=== PATIENT | female | born 1965 | race Caucasian/White ===

== ENCOUNTER 2016-07-22 04:03 | Emergency (ER) | payer BC, OTHER ==
[2016-07-22 04:14] VITALS: BP 89/50; PULSE 86; RESP 16; TEMP 98.3
[2016-07-22] MEDS ORDERED: HYDROmorphone 1 MG/ML 1 ML SYRINGE IM STA (04:28)
[2016-07-22] MEDS ORDERED: KETOROLAC 60 MG/2 ML VIAL IM STA (04:28)
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
--- NOTE | 2016-07-22 05:23 | XR ---
EXAM: XR Cervical Spine, 4 or 5 Views. CLINICAL HISTORY: Reason: Pain TECHNIQUE: Frontal, lateral and oblique views of the cervical spine. COMPARISON: No relevant prior studies available. FINDINGS: Vertebrae: The alignment of the cervical spine. Mild disc space narrowing with endplate changes and anterior osteophyte formation at C5-6. There is mild disc space narrowing at C6-7 No acute fracture. Disc spaces: See above. Soft tissues: No prevertebral soft tissue abnormality. IMPRESSION: No acute bony abnormality. Cervical spondylosis most pronounced at C5-6.
== END 2016-07-22 05:19 | disposition home or self-care (01) ==
LOC: EC 04:03
DX: S16.1XXA Strain of muscle, fascia and tendon at neck level, initial encounter (principal); F17.200 Nicotine dependence, unspecified, uncomplicated; X58.XXXA Exposure to other specified factors, initial encounter
CPT/HCPCS: 72050; 99283; 96372 ×2; J1885; J1170

== ENCOUNTER → 2017-01-02 | Outpatient (CLI) | payer BC ==
--- NOTE | 2017-01-02 07:41 | CT ---
EXAMINATION TYPE: CT brain wo con DATE OF EXAM: 01/02/2017 COMPARISON: NONE HISTORY: Syncope, dizziness CT DLP: [address] of the brain was performed. The ventricles, basal cisterns and sulci overlying the cerebral convexities demonstrate a normal appe arance. There is no evidence for intracranial hemorrhage or sulcal effacement. No mass effects are seen. Osseous calvarium is intact. If symptoms persist consider MRI as clinically warranted. IMPRESSION: 1. No acute intracranial process is seen at this time.
== END ==
LOC: RADCTMAIN 07:17
PROVIDERS: ATTEND Internal Medicine
DX: R40.4 Transient alteration of awareness (principal); R55 Syncope and collapse
CPT/HCPCS: 70450

== ENCOUNTER → 2017-01-03 | Outpatient (CLI) | payer BC ==
--- NOTE | 2017-01-03 19:48 | MR ---
EXAMINATION TYPE: MR monika/catracho wo con DATE OF EXAM: 01/03/2017 COMPARISON: NONE HISTORY: neck and back pain TECHNIQUE: T1 and T2 axial and sagittal images of the lumbar spine are submitted. FINDINGS: There is no abnormal signal seen within the visualized spinal cord or paraspinal soft tissu es. At T12-L1 there is a small focal left paracentral disc bulge or erosion. No canal stenosis or foramin al encroachment. At L1-2 there is no disc herniation or canal stenosis. No foraminal encroachment. At L2-3 there is no disc herniation or canal stenosis. No foraminal encroachment. Mild hypertrophic c hange of the facets. At L3-4 there is mild degenerative disc disease. Moderate facet arthropathy with no canal stenosis or foraminal encroachment. At L4-5 there is moderate facet arthropathy. No disc herniation. Suggestion of an annular tear with l eft lateral disc bulging. Mild left foraminal encroachment. At L5-S1 there is annular tear and central disc broad-based disc protrusion. No canal stenosis. No fo raminal encroachment. IMPRESSION: 1. Multilevel mild degenerative disc disease and facet arthropathy. Annular tear L5-S1 with central d isc bulging. 2. Annular tear L4-L5 with left lateral disc based protrusion and mild left foraminal encroachment. EXAMINATION TYPE: MR nikole bowman con DATE OF EXAM: 01/03/2017 COMPARISON: NONE HISTORY: neck and back pain TECHNIQUE: T1 sagittal and coronal, T2 sagittal, and gradient echo axial views of the cervical spine are submitted. FINDINGS: The cranial cervical junction is preserved. There is no abnormal signal seen within the sp inal cord or paraspinal soft tissues. At C2-3 there is no disc herniation or canal stenosis. No foraminal encroachment. At C3-4 there is bilateral uncovertebral joint hypertrophy. Neural foramina patent. No Canal stenosis . At C4-5 there is bilateral uncovertebral joint hypertrophy. No canal stenosis. No foraminal encroachm ent. At C5-6 there is moderate degenerative disc disease with hypertrophic change of the facets and uncove rtebral joints. Neural foramina patent with mild narrowing on the left secondary to greater hypertrop hic changes. No disc herniation or canal stenosis. At C6-7 there is central and right paracentral disc bulging with mild bilateral uncovertebral joint h ypertrophy. Mild right-sided neural foraminal encroachment. No Canal stenosis. At C7-T1 there is disc herniation or canal stenosis. No foraminal encroachment. There is moderate degenerative disc disease C5-C6 and C6-C7 with mild changes its 3-4 and C4-C5. IMPRESSION: 1. At C6-7 there is central and right paracentral disc bulging with mild bilateral uncovertebral jameel nt hypertrophy. Mild right-sided neural foraminal encroachment. No Canal stenosis. 2. Moderate to severe degenerative disc disease C5-C6 with hypertrophic change of the facets and unco vertebral joints. Mild left neural foraminal encroachment. No Canal stenosis.
== END | disposition home or self-care (01) ==
LOC: RADMRIMAIN 13:32
PROVIDERS: ATTEND Internal Medicine
DX: M50.223 Other cervical disc displacement at C6-C7 level (principal); M51.36 Other intervertebral disc degeneration, lumbar region; M51.37 Other intervertebral disc degeneration, lumbosacral region; M50.322 Other cervical disc degeneration at C5-C6 level; M46.86 Other specified inflammatory spondylopathies, lumbar region
CPT/HCPCS: 72141; 72148

== ENCOUNTER → 2017-09-22 | Outpatient (CLI) | payer BC ==
--- NOTE | 2017-09-22 13:16 | XR ---
EXAMINATION TYPE: XR chest 2V DATE OF EXAM: 09/22/2017 COMPARISON: NONE HISTORY: Z 77.120, environmental exposure to mold TECHNIQUE: Frontal and lateral views of the chest are obtained. FINDINGS: There is no focal air space opacity, pleural effusion, or pneumothorax seen. The cardiac silhouette size is showing a decreased heart size. Prominent lung volume could be indicative of COPD. There is a slight spinal curvature. The osseous structures are intact. IMPRESSION: No acute cardiopulmonary process.
== END | disposition home or self-care (01) ==
LOC: RADXRMAIN 09:13
PROVIDERS: ATTEND Internal Medicine
DX: Z77.120 Contact with and (suspected) exposure to mold (toxic) (principal)
CPT/HCPCS: 71046

== ENCOUNTER → 2020-09-19 | Outpatient (CLI) | payer BC ==
--- NOTE | 2020-09-19 08:58 | US ---
EXAMINATION TYPE: US gallbladder DATE OF EXAM: 09/19/2020 COMPARISON: NONE CLINICAL HISTORY: R10.11 RUQ abd pain. x 3 months EXAM MEASUREMENTS: Liver Length: 14.3 cm Gallbladder Wall: 0.2 cm CBD: 0.5 cm Right Kidney: 10.1 x 5.1 x 3.9 cm Pancreas: Partially Obscured by bowel gas Liver: Increased attenuation Gallbladder: No stones seen Evidence for sonographic Teixeira's sign: Yes CBD: Upper normal for size Right Kidney: No hydronephrosis or masses seen IMPRESSION: No distinct abnormality appreciated.
== END | disposition home or self-care (01) ==
LOC: RADUSWWP 07:09
PROVIDERS: ATTEND Family Medicine
DX: R10.11 Right upper quadrant pain (principal)
CPT/HCPCS: 76705

== ENCOUNTER 2020-10-17 14:48 | Emergency (ER) | payer BC ==
[2020-10-17 15:05] VITALS: RESP 18; TEMP 98.3
[2020-10-17] MEDS ORDERED: SODIUM CHLORIDE 0.9% 500 ML 500 ML IV STA (15:40)
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
[2020-10-17 16:10] LABS: Basophils % (A) 0 %; Eosinophils # (A) 0.1 k/uL (0-0.7); Eosinophils % (A) 1 %; HCT 40.8 % (34.0-46.0); HGB 13.9 gm/dL (11.4-16.0); Lymphocytes # (A) 2.2 k/uL (1.0-4.8); Lymphocytes % (A) 25 %; MCH 32.5 pg (25.0-35.0); MCHC 34.1 g/dL (31.0-37.0); MCV 95.4 fL (80.0-100.0); Mean Platelet Volume 7.2; Monocytes # (A) 0.5 k/uL (0-1.0); Monocytes % (A) 6 %; Neutrophils # (A) 5.9 k/uL (1.3-7.7); Neutrophils % (A) 67 %; Platelet Count 277 k/uL (150-450); RBC 4.28 m/uL (3.80-5.40); RDW 12.3 % (11.5-15.5); WBC 8.8 k/uL (3.8-10.6)
--- NOTE | 2020-10-17 16:30 | XR ---
EXAMINATION TYPE: XR chest 2V DATE OF EXAM: 10/17/2020 COMPARISON: 09/22/2017 INDICATION: Chest pain TECHNIQUE: Frontal and lateral views of the chest are obtained. FINDINGS: The heart size is normal. The pulmonary vasculature is normal. The lungs are clear. IMPRESSION: 1. No acute pulmonary process.
[2020-10-17 16:32] LABS: ALT 19 U/L (4-34); AST 25 U/L (14-36); African American GFR (CKD) >90 (>60 ml/min/1.73 sqM); Albumin 4.6 g/dL (3.5-5.0); Alkaline Phosphatase 111 U/L (38-126); Anion Gap 10 mmol/L; Blood Urea Nitrogen 13 mg/dL (7-17); Calcium 9.9 mg/dL (8.4-10.2); Carbon Dioxide 26 mmol/L (22-30); Chloride 106 mmol/L (98-107); Glucose 89 mg/dL (74-99); Magnesium 2.1 mg/dL (1.6-2.3); Non-African American GFR(CKD) 86 (>60 ml/min/1.73 sqM); Potassium 3.8 mmol/L (3.5-5.1); Sodium 142 mmol/L (137-145); Total Bilirubin 0.1 mg/dL (0.2-1.3); Total Protein 7.3 g/dL (6.3-8.2)
[2020-10-17 17:04] LABS: Amphetamine Screen,Urine Not Detected (NotDetected); Barbiturate Screen,Urine Not Detected (NotDetected); Benzodiazepines Screen,Urine Not Detected (NotDetected); Cocaine Screen,Urine Not Detected (NotDetected); Methadone Screen, Urine Not Detected (NotDetected); Opiate Screen,Urine Not Detected (NotDetected); Oxycodone Screen, Urine Not Detected (NotDetected); Phencyclidine Screen,Urine Not Detected (NotDetected); Tricyclic Antidepressant,Urine Not Detected (NotDetected); Urn Cannabinoid Scrn Not Detected (NotDetected)
[2020-10-17 17:32] VITALS: BP 159/91; PULSE 68
== END 2020-10-17 18:35 | disposition left against medical advice (07) ==
LOC: EC 14:48
DX: F41.8 Other specified anxiety disorders (principal)
CPT/HCPCS: 36415; 71046; 80053; 80306; 82075; 83735; 84484; 85025; 93005; 96360; 99285

== ENCOUNTER 2022-02-26 15:26 | Emergency (ER) | payer BC ==
[2022-02-26 16:17] VITALS: TEMP 98.5
[2022-02-26 19:01] VITALS: BP 151/81; PULSE 71; RESP 18
[2022-02-26] MEDS ORDERED: SODIUM CHLORIDE 0.9% 1,000 ML IV STA (19:14)
[2022-02-26] MEDS ORDERED: methylPREDNISolone SOD SUCCI 125 MG/2 ML VIAL IV STA (19:16)
[2022-02-26] MEDS ORDERED: ORPHENADRINE 30 MG/ML 2 ML VIAL IVP STA (19:16)
[2022-02-26] MEDS ORDERED: KETOROLAC 15 MG/ML 1 ML VIAL IVP STA (19:16)
--- NOTE | 2022-02-26 19:35 | ED ---
General Adult HPI - General Chief complaint: Neuro Symptoms/Deficit Stated complaint: body aches Time Seen by Provider: 02/26/22 18:53 Source: patient Mode of arrival: ambulatory Limitations: no limitations - History of Present Illness Initial comments: Patient is a 56-year-old female presenting with chief complaint of pain and numbness/tingling to the bilateral arms for the last 4 days. Patient states that she is having pain around the hand and wrist on the left side and pain in the shoulder and upper arm on the right side. As a burning sensation occasionally accompanied by numbness. Pain is worse with range of motion. She also admits to neck pain. Denies any injury or trauma. Denies any chest pain, difficulty breathing, palpitations, nausea, vomiting, dizziness, abdominal pain, URI like symptoms. - Related Data Home Medications Medication Instructions Recorded Confirmed Cyclobenzaprine [Flexeril] 1 tab PO DIRECTED PRN 05/09/14 07/22/16 Previous Rx's Medication Instructions Recorded Hydrocodone/Acetaminophen [[place] 2 each PO Q6HR PRN #20 tab 07/22/16 5-325] Allergies Allergy/AdvReac Type Severity Reaction Status Date / Time No Known Allergies Allergy Verified 10/17/20 15:00 Review of Systems ROS Statement: Those systems with pertinent positive or pertinent negative responses have been documented in the HPI. ROS Other: All systems not noted in ROS Statement are negative. Past Medical History Past Medical History: No Reported History Additional Past Medical History / Comment(s): herniation and 2 tears, sees orthopedic for her back ARTHRITIS History of Any Multi-Drug Resistant Organisms: MRSA Date of last positivie culture/infection: 2006 MDRO Source:: back Past Surgical History: No Surgical Hx Reported Past Psychological History: No Psychological Hx Reported Smoking Status: Never smoker Past Alcohol Use History: None Reported Past Drug Use History: None Reported General Exam Limitations: no limitations General appearance: alert, in no apparent distress Head exam: Present: atraumatic, normocephalic, normal inspection Eye exam: Present: normal appearance, PERRL, EOMI. Absent: scleral icterus, conjunctival injection, periorbital swelling Pupils: Present: normal accommodation Neck exam: Present: normal inspection Respiratory exam: Present: normal lung sounds bilaterally. Absent: respiratory distress, wheezes, rales, rhonchi, stridor Cardiovascular Exam: Present: regular rate, normal rhythm, normal heart sounds. Absent: systolic murmur, diastolic murmur, rubs, gallop, clicks Extremities exam: Present: normal inspection, full ROM, normal capillary refill. Absent: tenderness Neurological exam: Present: alert, oriented X3, CN II-XII intact Expanded Patient oriented to: Present: person, place, time Speech: Present: fluid speech Cranial nerves: EOM's Intact: Normal, Facial Sensation: Normal Sensory exam: Upper Extremity Light Touch: Normal, Lower Extremity Light Touch: Normal Motor strength exam: RUE: 5, LUE: 5, RLE: 5, LLE: 5 Eye Response: (4) open spontaneously Motor Response: (6) obeys commands Verbal Response: (5) oriented Juju Total: 15 Psychiatric exam: Present: normal affect, normal mood Skin exam: Present: warm, dry, intact, normal color. Absent: rash Course Vital Signs 02/26/22 02/26/22 16:13 18:55 Temperature 98.5 F Pulse Rate 85 71 Respiratory 16 18 Rate Blood Pressure 139/81 151/81 O2 Sat by Pulse 99 97 Oximetry Medical Decision Making - Medical Decision Making Patient is a 56-year-old female presenting with chief complaint of pain and intermittent numbness to the bilateral extremities. Patient also admits to neck pain. No recent injury or trauma. Physical examination showed no focal neurological deficits, heart and lungs are clear to auscultation. Orders were placed for CT of the brain and cervical spine as well as CBC, CMP, coags, and UA. Pain medication and steroid were ordered for pain and paresthesia. Patient became agitated stating that she did not want to stay and wait for her workup. She states that she wanted to get home as she was hungry and declined any food offered here in the ER. She also states she wanted to get home as her needed to wake up early in the morning. Patient states that she would rather follow up with her PCP at this time. Patient acknowledges and understands the potential risks of leaving AGAINST MEDICAL ADVICE before completing a workup here in the ER today, including permanent injury or . Patient is of sound mind and body and able to make her own decisions, she is A and O 4. She states she will follow-up with her PCP Dr. Villegas. She should report back to the ER with any new or worsening symptoms. Patient continued to be agitated refused to sign papers before leaving. Disposition Clinical Impression: Paresthesia Disposition: Left Against Medical Advice Condition: Fair Instructions (If sedation given, give patient instructions): Paresthesia (ED) Additional Instructions: Follow-up with PCP. Report back to ER with any new or worsening symptoms. Is patient prescribed a controlled substance at d/c from ED?: No Referrals: Vincent Villegas MD [Primary Care Provider] - 1-2 days Time of Disposition: 19:55
== END 2022-02-26 20:05 | disposition left against medical advice (07) ==
LOC: EC 15:26
DX: R20.2 Paresthesia of skin (principal); Z53.29 Procedure and treatment not carried out because of patient's decision for other reasons
CPT/HCPCS: 99283